=== PATIENT | male | born 1980 | race Caucasian/White ===

== ENCOUNTER → 2020-08-02 | Outpatient (CLI) | payer OTHER ==
[~2020-08-02] MED LIST: ACYCLOVIR 400400 MG PO; FLEXERIL PO; LODINE 200MG C200 M1 PO; MEDROLDOSEPACK PO; NORCO 5-325 TA1 EACH PO; ULTRAM 50MG TAB50 MG PO
== END ==
LOC: M.CT 07:41
PROVIDERS: ATTEND Nurse Practitioner Family
DX: Z13.6 Encounter for screening for cardiovascular disorders (principal)